=== PATIENT | female | born 1980 | race Caucasian/White ===

== ENCOUNTER 2020-01-03 12:51 | Emergency (ER) | payer BC ==
[~2020-01-03] VITALS: Ht 165.1 cm; Wt 59.4 kg
[2020-01-03 13:02] VITALS: Ht 165.1 cm; Wt 59.4 kg
[2020-01-03 15:09] VITALS: BP 135/92
== END 2020-01-03 15:11 | disposition home or self-care (01) ==
LOC: ED 12:51
DX: G43.909 Migraine, unspecified, not intractable, without status migrainosus (principal)
CPT/HCPCS: J1200; J1885; J2765